=== PATIENT | female | born 1970 | race Two or more races ===

== ENCOUNTER 2021-04-23 18:05 | Emergency (ER) | payer MEDICARE, MEDICAID ==
[~2021-04-23] VITALS: Ht 157.5 cm; Wt 89.4 kg
[2021-04-23 20:20] LABS: Urine Bacteria FEW /hpf (None Seen); Urine Blood Negative /uL (Negative); Urine Specific Gravity 1.019 (1.001-1.035); Urine WBC 38 /hpf (0 - 5)
[2021-04-23 22:30] VITALS: BP 142/60
[2021-04-23] MEDS ORDERED: HYDROcodone-ACET 5/325MG TAB PO ONE (22:45)
[2021-04-23] MEDS ORDERED: cefTRIAXone SOD 1,000 MG VL IM ONE (23:45)
[2021-04-24] MEDS ORDERED: LIDOCAINE 1% HCL (LOCAL ANESTH.) INJ 20ML MDV ID ONE
== END 2021-04-24 00:10 | disposition home or self-care (01) ==
LOC: ER 18:08
DX: N39.0 Urinary tract infection, site not specified (principal); Z94.0 Kidney transplant status; Z88.1 Allergy status to other antibiotic agents; Z20.822 Contact with and (suspected) exposure to COVID-19
CPT/HCPCS: 36415; 81001; 87426; 96372; 99283; J0696; J2001